=== PATIENT | female | born 1985 | race Caucasian/White ===

== ENCOUNTER 2018-09-29 18:38 | Emergency (ER) | payer OTHER ==
[2018-09-29] MEDS ORDERED: 0.9 % SODIUM CHLORIDE 1,000 ML IV ONE (18:49)
[2018-09-29] MEDS ORDERED: METOPROLOL TARTRATE 5 MG/5 ML VIAL IV ONE (18:49)
[2018-09-29 18:59] LABS: BASOPHILS % 0.4 % (0.0-1.5); EOSINOPHILS % 2.1 % (0.0-6.8); MEAN CORPUSCULAR HEMOGLOBIN 34.5 pg (28.0-34.0); MONOCYTES % 7.5 % (0.0-11.0); NEUTROPHILS # 2.3 # k/uL (1.4-7.7)
[2018-09-29] MEDS ORDERED: cloNIDine HCL 0.1 MG TABLET PO ONE ×2 (19:19→20:01)
--- NOTE | 2018-09-29 19:28 | ED Physician Documentation ---
Chest Pain - HISTORIAN Historian: patient - HPI Stated Complaint: chest pain, palpitations Chief Complaint: Chest Pain Additional Information: Patient presents to ED with heart palpitations, hypertension and chest pain worsening over the past 3 days. Patient states she has had issues with her blood pressure and heart rate for the past year. She was on Adderal for years and was taken off of it about a year ago due to elevated blood pressure and fast heart rate. She states she gained weight but over the past 2 month she has lost about 35 pounds with little effort. Patient reports stopping HCTZ and Pristique about 8 months ago but restarting it about 4 weeks ago due to elevated blood pressure. Patient states she began to have left sided chest pain, 6/10, non- radiating, sharp stabbing. The chest pain brought her to the ER. Onset: days ago (3) Timing: gradual onset Duration: waxing, waning Last known Well Date: 09/25/18 Last Known Well Time: 08:00 Severity: moderate Quality: sharp, stabbing Chest Pain Radiation: no radiation Chest Pain Signs/Symptoms: tachycardia, palpitations. denies: nausea, vomiting Worsened By: nothing Relieved By: nothing - ROS CONST: none MS/LYMPH: none GI/: none EYES/ENT: none SKIN/ENDO: none NEURO/PSYCH: none - PAST HX MS risk factors: hypertension DVT/PE Risk Factors: none TAD/AAA risk factors: none Neuro deficit: none GI disease: none Lung disease: none Surgeries/Procedures: none Allergies/Adverse Reactions: Allergies Allergy/AdvReac Type Severity Reaction Status Date / Time No Known Drug Allergies Allergy Verified 09/29/18 18:45 Home Medications: Ambulatory Orders Medication Instructions Recorded Clonidine HCl [Catapres] 0.2 mg PO Q8 #90 tablet 09/29/18 Desvenlafaxine [Desvenlafaxine ER] 100 mg PO HS 09/29/18 Hydrochlorothiazide [Hydrodiuril] 12.5 mg PO DAILY 09/29/18 Metoprolol Tartrate 50 mg PO Q12 #60 tablet 09/29/18 - SOCIAL HX Smoking History: non-smoker Alcohol Use: none Drug Use: none - FAMILY HX Family HX: none - VITAL SIGNS Vital Signs: Vital Signs Temp Pulse Resp BP Pulse Ox 97.2 F L 120 H 22 184/120 98 09/29/18 18:38 09/29/18 18:38 09/29/18 18:38 09/29/18 18:38 09/29/18 18:38 - REVIEWED ASSESSMENTS Nursing Assessment Reviewed: Yes Vitals Reviewed: Yes Progress - Progress Progress: 2049 Patient's blood pressure was 179/121 she refused to stay for further treatment. Patient left AMA. - EKG/XRAY/CT Comments: 1838 Sinus tachycardia 121 bpm ED Results Lab/Radiology - Lab Results Lab Results: Lab Results 09/29/18 18:49 WBC 4.40 K/ul K/ul (4.00-12.00) RBC 3.72 M/ul L M/ul (3.90-5.20) Hgb 12.8 g/dL g/dL (11.5-16.0) Hct 38.2 % % (34.5-46.5) MCV 103.0 fl H fl (80.0-100.0) MCH 34.5 pg H pg (28.0-34.0) MCHC 33.5 g/dL g/dL (30.0-36.0) RDW 13.3 % % (11.3-14.3) Plt Count 186 K/mm3 K/mm3 (130-400) Neut % (Auto) 52.0 % % (39.0-79.0) Lymph % (Auto) 38.0 % % (16.0-50.0) [place] % (Auto) 7.5 % % (0.0-11.0) Eos % (Auto) 2.1 % % (0.0-6.8) Baso % (Auto) 0.4 % % (0.0-1.5) Neut # (Auto) 2.3 # k/uL # k/uL (1.4-7.7) Lymph # (Auto) 1.7 # k/uL # k/uL (0.6-4.0) [place] # (Auto) 0.3 # k/uL # k/uL (0.0-0.9) Eos # (Auto) 0.1 # k/uL # k/uL (0.0-0.6) Baso # (Auto) 0.0 # k/uL # k/uL (0.0-0.5) UA - negative UA - HCG negative - Radiology Radiology Impressions: CXR - no acute cardiopulmonary processes - Orders Orders: ED Orders Category Date Time Status Place IV Lock 1T Care 09/29/18 18:47 Active CHEST 1VIEW [RAD] Stat Exams 09/29/18 Taken CBC/PLATELET/DIFF Routine Lab 09/29/18 18:49 Completed CMP Routine Lab 09/29/18 18:49 Received THYROID PANEL (TSH, FT3, FT4) Stat Lab 09/29/18 18:49 Received TROPONIN I Stat Lab 09/29/18 18:49 Received UA W/MICRO IF INDICATED Routine Lab 09/29/18 18:48 Ordered URINE HCG Stat Lab 09/29/18 Uncollected 0.9 % Sodium Chloride [Normal Saline] 1,000 ml Med 09/29/18 18:49 Active IV Q1H Metoprolol Tartrate [Lopressor] Med 09/29/18 18:49 Discontinued 5 mg IV NOW ONE cloNIDine HCL [Catapress] Med 09/29/18 19:19 Discontinued 0.1 mg PO NOW ONE Chest Pain Physical Exam - EXAM General Appearance: no acute distress, alert EENT: CATR[place]IT[place] Neck: nml inspection, other (no goiter) Respiratory: no resp. distress, chest non-tender, nml breath sounds CVS: tachycardia (120 bpm) Abdomen: soft, normal bowel sounds Skin: warm/dry, normal color Extremities: non-tender, no edema Neuro: oriented X3, motor nml, sensation nml, mood/affect nml Discharge Clincal Impression: Tachycardia with heart rate 100-120 beats per minute, Hypertensive urgency Prescriptions: Clonidine HCl [Catapres] 0.2 mg PO Q8 #90 tablet Metoprolol Tartrate 50 mg PO Q12 #60 tablet Referrals: Debbie Rosenberg MD [Primary Care Provider] - 2 Days Additional Instructions: 1. Stop taking Pristiq, this medication increases your blood pressure 2. Stop taking hydrochlorothiazide (HCTZ). Start taking Metoprolol 50mg BID and Clonidine 0.2mg every 8 hours. Be sure to take these medications as prescribed. IF you miss a dose take it as soon as you remember. Missing doses or stopping these medications will cause high blood pressure 3. Avoid stimulants such as caffeine, energy drinks, sudafed, etc 4. Avoid alcohol 5. Follow up with PCP within 1 week. Discuss sleep study to evaluate for sleep apnea, Echo cardiogram to evaluate for pulmonary hypertension, further thyroid studies and evaluation for adrenal pheochromocytoma. 6. Return to ER for new or worsening symptoms Condition: Stable Disposition: AGAINST MEDICAL ADVICE Decision to Admit: NO Date of Decison to Admit: 09/29/18 Decision Time: 21:00
[2018-09-29 19:39] LABS: eGFR (Non-African) > 60
[2018-09-29] MEDS ORDERED: METOPROLOL TARTRATE 50 MG TABLET PO ONE (20:01)
--- NOTE | 2018-09-29 20:21 | Diagnostic Imaging Report ---
JENELLE ZAYAS [facility] [id number] [facility].[address] [id number] Report Submission Date: September 29, 2018 8:04:43 PM CDT Patient Study Name: NAIF KIDD Date: September 29, 2018 6:55:54 PM CDT Modality Type: DX Gender: F Description: CHEST 1VIEW : 83 Institution: [facility] Physician: JENELLE ZAYAS Chest, AP portable HISTORY Chest pain FINDINGS No infiltrate, effusion or pneumothorax is present. Heart size, mediastinum and pulmonary vascularity are normal. IMPRESSION No active pulmonary disease. Electronically signed on September 29, 2018 8:04:43 PM CDT by: Ray JACKSON
[2018-09-29 21:57] VITALS: BP 179/121
== END 2018-09-29 21:00 | disposition left against medical advice (07) ==
LOC: ED 18:38
DX: R00.0 Tachycardia, unspecified (principal); I16.0 Hypertensive urgency
CPT/HCPCS: 36415; 71045; 80053; 84439; 84443; 84481; 84484; 85025; 93005; 96374; 99283; 99284; J3490; J7030; S1016